=== PATIENT | male | born 1980 | race Caucasian/White ===

== ENCOUNTER 2017-08-26 18:25 | Inpatient (IN) | payer BC, OTHER ==
[~2017-08-26] VITALS: Ht 175.3 cm; Wt 80.7 kg
[~2017-08-26 18:25] MED LIST: HYDR-3326 PO
[2017-08-26] MEDS ORDERED: ASPIRIN 325 MG TABLET PO ONE (19:30)
[2017-08-26] MEDS ORDERED: NITROGLYCERIN 0.4 MG/TAB BOTTLE SL ONE ×2 (19:30→19:51)
[2017-08-26 19:36] LABS: CREATININE 0.7 mg/dL (0.6-1.3); POTASSIUM 4.2 mmol/L (3.5-5.1)
[2017-08-26 19:38] LABS: EOSINOPHILS # (AUTO) 0.1 K/uL (0.0-0.7); EOSINOPHILS % (AUTO) 0.8 % (0.0-7.0); HEMATOCRIT 45.7 % (36.7-47.1); HEMOGLOBIN 16.1 g/dL (12.5-16.3); LYMPHOCYTES # (AUTO) 1.1 K/uL (20.0-40.0); LYMPHOCYTES % (AUTO) 11.1 % (20.5-51.5); MEAN CORPUSCULAR HEMOGLOBIN 31.3 uug (23.8-33.4); MEAN CORPUSCULAR HGB CONC 35 g/dL (32.5-36.3); MONOCYTES # (AUTO) 0.5 K/uL (2.0-10.0); MONOCYTES % (AUTO) 5.4 % (0.0-11.0); NEUTROPHILS # (AUTO) 8.5 K/uL (1.8-8.9); NEUTROPHILS % (AUTO) 82.7 % (38.5-71.5); PLATELET COUNT (AUTO) 283 K/uL (152-348); RED BLOOD CELL COUNT(AUTO) 5.13 MIL/uL (4.06-5.63); WHITE BLOOD COUNT (AUTO) 10.3 K/uL (3.6-10.2)
[2017-08-26] MEDS ORDERED: ASPIRIN 325 MG TABLET ONE (19:51)
[2017-08-26 19:56] LABS: BILIRUBIN,DIRECT 0.7 mg/dL (0.0-0.2); BILIRUBIN,TOTAL 1.5 mg/dL (0.2-1.0); TOTAL PROTEIN, SERUM 8.6 g/dL (6.4-8.2)
[2017-08-26] MEDS ORDERED: MORPHINE SULFATE 2 MG/1 ML DISP.SYRIN IV ONE (20:00)
[2017-08-26] MEDS ORDERED: MORPHINE SULFATE 2 MG/1 ML DISP.SYRIN ONE (20:13)
[2017-08-26] MEDS ORDERED: MORPHINE SULFATE 4 MG/1 ML DISP.SYRIN IV ONE (20:30)
[2017-08-26] MEDS ORDERED: MORPHINE SULFATE 4 MG/1 ML DISP.SYRIN ONE (20:47)
[2017-08-26] MEDS ORDERED: ACETAMINOPHEN 325 MG TABLET PO PRN (21:00)
[2017-08-26] MEDS ORDERED: NITROGLYCERIN 0.4 MG/TAB BOTTLE SL PRN (21:00)
[2017-08-26] MEDS ORDERED: ONDANSETRON 4 MG/2 ML VIAL IV PRN (21:00)
[2017-08-26] MEDS ORDERED: MAGNESIUM HYDROXIDE 30 ML LIQUID UDC PO PRN (21:00)
[2017-08-26] MEDS ORDERED: MORPHINE SULFATE 4 MG/1 ML DISP.SYRIN IV PRN (21:00)
[2017-08-26] MEDS ORDERED: HYDROCODONE/APAP 5-325MG TABLET PO PRN (21:00)
[2017-08-26] MEDS ORDERED: SIMVASTATIN 10 MG TABLET PO SCH (21:00)
[2017-08-26 21:30] VITALS: BP 105/61
[2017-08-26] MEDS ORDERED: SIMVASTATIN 10 MG TABLET ONE (23:36)
[2017-08-27 00:23] VITALS: BP 110/65
[2017-08-27 04:00] VITALS: BP 94/51
[2017-08-27 06:51] LABS: BASOPHILS % (AUTO) 0.1 % (0.0-2.0); EOSINOPHILS # (AUTO) 0.1 K/uL (0.0-0.7); HEMATOCRIT 40.9 % (36.7-47.1); HEMOGLOBIN 14.2 g/dL (12.5-16.3); LYMPHOCYTES # (AUTO) 1.1 K/uL (20.0-40.0); LYMPHOCYTES % (AUTO) 20.6 % (20.5-51.5); MEAN CORPUSCULAR HEMOGLOBIN 30.9 uug (23.8-33.4); MEAN CORPUSCULAR HGB CONC 35 g/dL (32.5-36.3); MEAN CORPUSCULAR VOLUME 89.5 fL (73.0-96.2); MONOCYTES # (AUTO) 0.5 K/uL (2.0-10.0); NEUTROPHILS # (AUTO) 3.6 K/uL (1.8-8.9); NEUTROPHILS % (AUTO) 67.3 % (38.5-71.5); PLATELET COUNT (AUTO) 231 K/uL (152-348); RED BLOOD CELL COUNT(AUTO) 4.57 MIL/uL (4.06-5.63); WHITE BLOOD COUNT (AUTO) 5.3 K/uL (3.6-10.2)
[2017-08-27 07:00] LABS: CREATININE 0.7 mg/dL (0.6-1.3); MAGNESIUM 2.1 mg/dL (1.8-2.4); PHOSPHOROUS 4.9 mg/dL (2.5-4.9); POTASSIUM 3.8 mmol/L (3.5-5.1)
[2017-08-27 07:16] LABS: THYROID STIMULATING HORMONE 2.873 mIU/mL (0.358-3.740)
[2017-08-27] MEDS ORDERED: ASPIRIN 81 MG TAB.CHEW PO SCH (09:00)
[2017-08-27 11:38] VITALS: BP 107/69
[2017-08-27] MEDS ORDERED: RANI150T12 PO (13:27)
== END 2017-08-27 14:40 | disposition home or self-care (01) | DRG 392 ==
LOC: ER 18:26 → TELE 22:18
DX: K21.9 Gastro-esophageal reflux disease without esophagitis (principal); Q87.2 Congenital malformation syndromes predominantly involving limbs; K80.20 Calculus of gallbladder without cholecystitis without obstruction; R74.0 Nonspecific elevation of levels of transaminase and lactic acid dehydrogenase [LDH]; R94.31 Abnormal electrocardiogram [ECG] [EKG]
CPT/HCPCS: 36415; 70030-TC; 71045; 83690; 83735; 84100; 84443; 85025; 85730; 93005; 93307; A4663; J2270

== ENCOUNTER 2017-09-08 00:52 | Emergency (ER) | payer BC ==
[~2017-09-08] VITALS: Ht 175.3 cm; Wt 81.6 kg
[~2017-09-08 00:52] MED LIST changes: -HYDR-3326 PO; +RANI150T12 PO
--- NOTE | 2017-09-08 01:20 | NUR ---
pt AAOx4. able to speak in full sentences. Able to make needs known, responsive to verbal and tactile stimuli. pt comes in with c/o RUQ abdominal pain 8/10 with nausea. states he has hx of gall stones and was admitted for this last week.
[2017-09-08] MEDS ORDERED: KETOROLAC TROMETHAMINE 30 MG INJ IVP ONE (01:30)
[2017-09-08] MEDS ORDERED: IV NORMAL SALINE 1000 ML BAG IV ONE (01:30)
[2017-09-08] MEDS ORDERED: ONDANSETRON 4 MG/2 ML VIAL IV ONE (01:30)
[2017-09-08] MEDS ORDERED: KETOROLAC TROMETHAMINE 30 MG INJ ONE (01:41)
[2017-09-08] MEDS ORDERED: ONDANSETRON 4 MG/2 ML VIAL ONE (01:42)
[2017-09-08 01:48] LABS: CREATININE 0.9 mg/dL (0.6-1.3); POTASSIUM 3.6 mmol/L (3.5-5.1)
--- NOTE | 2017-09-08 01:50 | NUR ---
pt in bed noted with facial grimacing and grasping at site. states pain still at 8/10 despite pain medication given. ERMD made aware and new orders given and carried out.
[2017-09-08 01:53] LABS: BASOPHILS % (AUTO) 0.1 % (0.0-2.0); EOSINOPHILS # (AUTO) 0.2 K/uL (0.0-0.7); EOSINOPHILS % (AUTO) 3.3 % (0.0-7.0); HEMOGLOBIN 15.3 g/dL (12.5-16.3); LYMPHOCYTES # (AUTO) 2.2 K/uL (20.0-40.0); LYMPHOCYTES % (AUTO) 29.9 % (20.5-51.5); MEAN CORPUSCULAR HEMOGLOBIN 31.7 uug (23.8-33.4); MEAN CORPUSCULAR HGB CONC 36 g/dL (32.5-36.3); MEAN CORPUSCULAR VOLUME 89.1 fL (73.0-96.2); MONOCYTES # (AUTO) 0.6 K/uL (2.0-10.0); MONOCYTES % (AUTO) 8.1 % (0.0-11.0); NEUTROPHILS # (AUTO) 4.3 K/uL (1.8-8.9); NEUTROPHILS % (AUTO) 58.6 % (38.5-71.5); PLATELET COUNT (AUTO) 261 K/uL (152-348); RED BLOOD CELL COUNT(AUTO) 4.83 MIL/uL (4.06-5.63); WHITE BLOOD COUNT (AUTO) 7.3 K/uL (3.6-10.2)
[2017-09-08] MEDS ORDERED: MORPHINE SULFATE 4 MG/1 ML DISP.SYRIN IV ONE (02:00)
[2017-09-08 02:01] LABS: BILIRUBIN,DIRECT 0.1 mg/dL (0.0-0.2); BILIRUBIN,TOTAL 0.7 mg/dL (0.2-1.0); TOTAL PROTEIN, SERUM 8.1 g/dL (6.4-8.2)
[2017-09-08] MEDS ORDERED: MORPHINE SULFATE 4 MG/1 ML DISP.SYRIN ONE (02:14)
--- NOTE | 2017-09-08 03:09 | NUR ---
pt resting comfortably in bed, states medication was effective
--- NOTE | 2017-09-08 04:40 | NUR ---
Patient discharged to home in stable conditon. pt slightly hypotensive, states he is asymptomatic. ER MD made aware and OKed for pt to be d/c Written and verbal after care instructions given as well as RX. Walked out of ER with steady gait. Aware to not drive and take prescription medication. Patient verbalizes understanding of instructions.
[2017-09-08 04:59] VITALS: BP 95/49
== END 2017-09-08 04:50 | disposition home or self-care (01) ==
LOC: ER 00:54
DX: K80.50 Calculus of bile duct without cholangitis or cholecystitis without obstruction (principal); Z88.1 Allergy status to other antibiotic agents
CPT/HCPCS: 36415; 83690; 85025; A4663; J1885; J2270; J2405; J7030

== ENCOUNTER 2017-09-21 02:30 | Emergency (ER) | payer BC ==
[~2017-09-21] VITALS: Ht 175.3 cm; Wt 81.6 kg
--- NOTE | 2017-09-21 02:40 | NUR ---
PATIENT TAKES BLOOD PRESSURE MEDICATION, UNABLE TO PROVIDE NAME AND DOSAGE AT THIS TIME. PATIENT STATES TAKING 1/2 TABLET OF NORCO BEFORE COMING TO ER.
[2017-09-21] MEDS ORDERED: IV NORMAL SALINE 1000 ML BAG IV ONE (03:15)
[2017-09-21] MEDS ORDERED: METOCLOPRAMIDE HCL 10 MG/2 ML VIAL IV ONE (03:15)
[2017-09-21] MEDS ORDERED: KETOROLAC TROMETHAMINE 15 MG INJ IV ONE (03:15)
[2017-09-21] MEDS ORDERED: METOCLOPRAMIDE HCL 10 MG/2 ML VIAL ONE (03:38)
[2017-09-21] MEDS ORDERED: KETOROLAC TROMETHAMINE 30 MG INJ ONE (03:38)
[2017-09-21 03:42] LABS: BASOPHILS % (AUTO) 0.1 % (0.0-2.0); EOSINOPHILS # (AUTO) 0.2 K/uL (0.0-0.7); EOSINOPHILS % (AUTO) 2.3 % (0.0-7.0); HEMATOCRIT 42.2 % (36.7-47.1); HEMOGLOBIN 14.9 g/dL (12.5-16.3); LYMPHOCYTES # (AUTO) 1.6 K/uL (20.0-40.0); LYMPHOCYTES % (AUTO) 20.1 % (20.5-51.5); MEAN CORPUSCULAR HEMOGLOBIN 31.1 uug (23.8-33.4); MEAN CORPUSCULAR HGB CONC 35 g/dL (32.5-36.3); MEAN CORPUSCULAR VOLUME 88.2 fL (73.0-96.2); MONOCYTES # (AUTO) 0.5 K/uL (2.0-10.0); MONOCYTES % (AUTO) 6.4 % (0.0-11.0); NEUTROPHILS # (AUTO) 5.5 K/uL (1.8-8.9); NEUTROPHILS % (AUTO) 71.1 % (38.5-71.5); PLATELET COUNT (AUTO) 240 K/uL (152-348); RED BLOOD CELL COUNT(AUTO) 4.79 MIL/uL (4.06-5.63); WHITE BLOOD COUNT (AUTO) 7.7 K/uL (3.6-10.2)
[2017-09-21 03:51] LABS: BILIRUBIN,DIRECT 0.1 mg/dL (0.0-0.2); BILIRUBIN,TOTAL 0.6 mg/dL (0.2-1.0); CREATININE 0.9 mg/dL (0.6-1.3); POTASSIUM 3.9 mmol/L (3.5-5.1); TOTAL PROTEIN, SERUM 8.4 g/dL (6.4-8.2)
--- NOTE | 2017-09-21 05:24 | NUR ---
Patient discharged to home in stable conditon. Written and verbal after care instructions given. Patient verbalizes understanding of instructions.
== END 2017-09-21 05:26 | disposition home or self-care (01) ==
LOC: ER 02:35
DX: K80.50 Calculus of bile duct without cholangitis or cholecystitis without obstruction (principal); Q87.2 Congenital malformation syndromes predominantly involving limbs; I10 Essential (primary) hypertension; Z88.1 Allergy status to other antibiotic agents
CPT/HCPCS: 36415; 71045; 74176; 80048; 80076; 83690; 84484; 85025; 85730; 93005; 96361; 96374; 96375; 99285; A4663; J1885; J2765; J7030; 70030-TC